=== PATIENT | female | born 1990 | race African-American/Black ===

== ENCOUNTER 2019-06-01 07:14 | Emergency (ER) | payer OTHER ==
[~2019-06-01] VITALS: Ht 154.9 cm; Wt 79.5 kg
[2019-06-01] MEDS ORDERED: DIFL200T PO (08:30)
[2019-06-01 08:55] VITALS: BP 137/65
[2019-06-01 09:36] LABS: CHLAMYDIA DNA AMPLIFICATION NEGATIVE (NEGATIVE); GC DNA AMPLIFICATION NEGATIVE (NEGATIVE)
== END 2019-06-01 08:55 | disposition home or self-care (01) ==
LOC: M ED 07:14
DX: B37.3 Candidiasis of vulva and vagina (principal)